=== PATIENT | male | born 1945 | race Caucasian/White ===

== ENCOUNTER → 2016-09-17 | Outpatient (CLI) | payer MEDICARE, OTHER ==
[2016-09-17 13:57] LABS: ALBUMIN 3.7 GM/DL (3.2-5.2); ALBUMIN/GLOBULIN RATIO 1.28 (1.00-1.93); BILIRUBIN,TOTAL 0.4 MG/DL (0.2-1.0); CALCIUM LEVEL 9.6 MG/DL (8.8-10.2); CREATININE FOR GFR 2.77 MG/DL (0.70-1.30); GLOMERULAR FILTRATION RATE 24.1 (>42); POTASSIUM SERUM 5.1 MEQ/L (3.5-5.1); TOTAL PROTEIN 6.6 GM/DL (6.4-8.2)
== END ==
LOC: M WUC 09:01
PROVIDERS: ATTEND Internal Medicine
DX: E03.9 Hypothyroidism, unspecified (principal); E78.00 Pure hypercholesterolemia, unspecified

== ENCOUNTER → 2016-09-25 | Outpatient (CLI) | payer MEDICARE, OTHER ==
--- NOTE | 2016-09-25 11:19 | REP ---
ULTRASOUND ABDOMEN: Real-time sonographic evaluation of the abdomen performed. There appear to be multiple small polyps along the inner wall of the gallbladder measuring up to 4 mm in diameter. Multiple small gallstones are also see in the lumen of the gallbladder. There is mild gallbladder wall thickening up to 4 mm. No free fluid is seen. There is no intrahepatic or extrahepatic biliary dilatation, common bile duct measuring 5 mm in diameter. The liver demonstrates no gross mass. The pancreas demonstrates no gross mass, evaluation of the pancreas is limited due to overlying bowel gas. The spleen is normal in size with no gross intrinsic abnormality. The length is 10.1 cm. Right kidney measures 10.9 x 6.1 x 5.9 cm and the left kidney 11.9 x 5.4 x 5.6 cm, with relatively normal size and echotexture. A cyst in the upper pole of the right kidney measures 1.0 x 0.5 x 0.7 cm. There is mild cortical thinning bilaterally. There is no hydronephrosis. Abdominal aorta is normal in caliber with no aneurysm, proximal aspect 2.4 cm in AP dimension, mid aspect 2.2 cm and distally 1.8 cm. Small complex right pleural fluid is suspected. IMPRESSION: Multiple small polyps in the gallbladder as well as multiple mobile gallstones. There is mild diffuse gallbladder wall thickening. There is no free fluid or biliary dilatation. No hydronephrosis. Right renal cyst. Small amount of complex right pleural fluid is suspected. Signed by Markos Wise MD 09/25/2016 12:58 P
== END ==
LOC: M RAD 09:09
PROVIDERS: ATTEND Internal Medicine
DX: K82.4 Cholesterolosis of gallbladder (principal); N28.1 Cyst of kidney, acquired

== ENCOUNTER → 2016-10-24 | Outpatient (CLI) | payer MEDICARE, OTHER ==
--- NOTE | 2016-10-24 12:43 | REP ---
REASON: Lower abdominal pain. PRIORS: None. The lack of intravenous contrast decreases the sensitivity of the exam. The lung bases show chronic changes, essentially unchanged from chest CT of 02/21/2015. Limited evaluation of the solid intra-abdominal organs shows no gross abnormalities. There is cholelithiasis. Limited evaluation of the adrenal glands and kidneys shows increased renal sinus adipose deposition and evidence of bilateral renal peripelvic cysts. There is no nephroureteral lithiasis, hydronephrosis, or hydroureter. There are no urinary bladder calcifications. There is mild prostatomegaly with corpora amylacea. No free fluid or free air is seen in the abdomen or pelvis. The abdominal aorta and para-aortic regions are within normal limits for the patient's age showing calcific atherosclerotic change. There is colonic diverticulosis. Seen involving the distal descending colon/upper sigmoid colon and amidst multiple diverticula, there is subtle fatty infiltration. Extensive sigmoid colon diverticulosis is noted. There is no evidence of a pelvic mass or intra-abdominal mass. There is no evidence of adenopathy. Bone window technique throughout the exam shows the osseous structures to be within normal limits for the patient's age. IMPRESSION: Early descending colon diverticulitis cannot be ruled out. Correlate clinically with appropriate followup. There is cholelithiasis. Other findings as described above. Signed by Spencer Stewart DO 10/24/2016 02:46 P
== END ==
LOC: M RAD 07:18
PROVIDERS: ATTEND Internal Medicine Nephrology
DX: K80.70 Calculus of gallbladder and bile duct without cholecystitis without obstruction (principal)

== ENCOUNTER → 2016-11-03 | Outpatient (CLI) | payer MEDICARE, OTHER ==
--- NOTE | 2016-11-03 09:35 | REP ---
Clinical: Chronic obstructive pulmonary disease . Comparison: 02/21/2015 . Technique: PA and lateral. Findings: The mediastinum and cardiac silhouette are stable. Evidence for prior sternotomy and aortic valve repair along with mild cardiomegaly. The lung march are clear and without acute consolidation, effusion, or pneumothorax. The skeletal structures are intact and normal. Impression: 1. No acute cardiopulmonary process. Signed by Allan Simpson MD 11/03/2016 09:26 A
== END ==
LOC: M RAD 09:05
PROVIDERS: ATTEND Nurse Practitioner Adult Health
DX: J44.9 Chronic obstructive pulmonary disease, unspecified (principal)

== ENCOUNTER → 2017-02-24 | Outpatient (CLI) | payer MEDICARE, OTHER ==
[2017-02-24 13:06] LABS: ALBUMIN 3.9 GM/DL (3.2-5.2); ALBUMIN/GLOBULIN RATIO 1.5 (1.00-1.93); BILIRUBIN,TOTAL 0.6 MG/DL (0.2-1.0); CALCIUM LEVEL 9.6 MG/DL (8.8-10.2); CREATININE FOR GFR 3.02 MG/DL (0.70-1.30); GLOMERULAR FILTRATION RATE 21.8 (>42); TOTAL PROTEIN 6.5 GM/DL (6.4-8.2)
[2017-02-24 13:09] LABS: POTASSIUM SERUM 5.5 MEQ/L (3.5-5.1)
== END ==
LOC: M WUC 08:43
PROVIDERS: ATTEND Internal Medicine
DX: E03.9 Hypothyroidism, unspecified (principal); N18.3 Chronic kidney disease, stage 3 (moderate); E78.00 Pure hypercholesterolemia, unspecified

== ENCOUNTER → 2018-04-01 | Outpatient (CLI) | payer MEDICARE, OTHER ==
[2018-04-01 13:45] LABS: ALBUMIN 3.8 GM/DL (3.2-5.2); ALBUMIN/GLOBULIN RATIO 1.52 (1.00-1.93); ALKALINE PHOSPHATASE 90 U/L (45-117); ALT/SGPT 19 U/L (12-78); ANION GAP 6 MEQ/L (8-16); AST/SGOT 14 U/L (7-37); BILIRUBIN,TOTAL 0.6 MG/DL (0.2-1.0); BLOOD UREA NITROGEN 42 MG/DL (7-18); CALCIUM LEVEL 9.6 MG/DL (8.8-10.2); CARBON DIOXIDE LEVEL 30 MEQ/L (21-32); CHLORIDE LEVEL 107 MEQ/L (98-107); CREATININE FOR GFR 2.57 MG/DL (0.70-1.30); GLOMERULAR FILTRATION RATE 26.2 (>42); GLUCOSE, FASTING 94 MG/DL (70-100); SODIUM LEVEL 143 MEQ/L (136-145); TOTAL PROTEIN 6.3 GM/DL (6.4-8.2)
== END ==
LOC: M WUC 08:36
DX: N18.3 Chronic kidney disease, stage 3 (moderate) (principal)
CPT/HCPCS: 80053

== ENCOUNTER → 2018-10-05 | Outpatient (REF) | payer MEDICARE, OTHER ==
[2018-10-05 19:13] LABS: HEMATOCRIT 40.2 % (42.0-52.0); HEMOGLOBIN 13.4 g/dl (13.5-17.5); MEAN CORPUSCULAR HEMOGLOBIN 30.7 pg (27.0-33.0); MEAN CORPUSCULAR HGB CONC 33.3 g/dl (32.0-36.5); MEAN CORPUSCULAR VOLUME 92.2 fl (80.0-96.0); PLATELET COUNT, AUTOMATED 174 10^3/uL (150-450); RED BLOOD COUNT 4.36 10^6/uL (4.30-6.10); WHITE BLOOD COUNT 7.6 10^3/uL (4.0-10.0)
[2018-10-05 20:20] LABS: ALBUMIN 3.7 GM/DL (3.2-5.2); BILIRUBIN,TOTAL 0.5 MG/DL (0.2-1.0); C REACTIVE PROTEIN QUANTITATIV 0.95 MG/DL (0.00-0.30); CALCIUM LEVEL 9.4 MG/DL (8.8-10.2); CHOLESTEROL RISK RATIO 3.137 (<5); CREATININE FOR GFR 2.46 MG/DL (0.70-1.30); GLOMERULAR FILTRATION RATE 27.5 (>42); POTASSIUM SERUM 4.3 MEQ/L (3.5-5.1); PTH INTACT 90.3 PG/ML (18.5-88.0); THYROID STIMULATING HORMONE 3.36 uIU/ML (0.358-3.740); TOTAL PROTEIN 6.9 GM/DL (6.4-8.2)
[2018-10-05 20:58] LABS: ERYTHROCYTE SEDIMENTATION RATE 14 mm/hr (0-20)
== END ==
LOC: M SFHCPLAZ 15:16
PROVIDERS: ATTEND Internal Medicine
DX: N18.3 Chronic kidney disease, stage 3 (moderate) (principal); E78.00 Pure hypercholesterolemia, unspecified; E03.9 Hypothyroidism, unspecified; H54.62 Unqualified visual loss, left eye, normal vision right eye
CPT/HCPCS: 36415; 69209; 80053; 80061; 83970; 84443; 85027; 85652; 86140; G0463

== ENCOUNTER → 2018-12-06 | Outpatient (CLI) | payer MEDICARE, OTHER ==
--- NOTE | 2018-12-06 14:05 | REP ---
CT of the chest without IV contrast for evaluation of aortic aneurysm: In the absence of IV contrast the study is insensitive for aortic dissection. Comparison is 10/24/2016. The diameter of the ascending thoracic aorta at the level of the pulmonary bifurcation is 3.8 cm. The diameter of the ascending aorta at the proximal isthmus is 4.0 cm. The diameter of the mid isthmus is 2.9 cm. The diameter of the distal isthmus is 3.7 cm . The diameter of the proximal descending thoracic aorta is 2.9 cm. This tapers to 2.3 cm at the diaphragmatic hiatus. The proximal isthmus is mildly dilated by size criteria. No periaortic hematoma is identified. Cardiac size is upper normal. There is no pericardial effusion. There are no infiltrates or pleural effusions. There are no nodules or masses. There is no mediastinal or axillary lymph node enlargement. The study is insensitive for hilar lymph node enlargement in the absence of IV contrast. There are sternotomy wires. Within the visualized upper abdomen. Tiny gallbladder calculi. There is no adrenal mass. Impression: The aortic diameter measurements as described. Prosthetic aortic valve. Sternotomy wires. Cardiac size is upper normal. Cholelithiasis. Electronically Signed by Markos Hamilton MD 12/06/2018 01:57 P
== END ==
LOC: M RAD 13:27
PROVIDERS: ATTEND Internal Medicine Cardiovascular Disease
DX: I71.2 Thoracic aortic aneurysm, without rupture (principal); K80.19 Calculus of gallbladder with other cholecystitis with obstruction; Z95.2 Presence of prosthetic heart valve

== ENCOUNTER → 2019-04-01 | Outpatient (CLI) | payer MEDICARE, OTHER ==
[2019-04-01 14:28] LABS: ALBUMIN 3.7 GM/DL (3.2-5.2); BILIRUBIN,TOTAL 0.5 MG/DL (0.2-1.0); CALCIUM LEVEL 9.5 MG/DL (8.8-10.2); CHOLESTEROL RISK RATIO 2.85 (<5); CREATININE FOR GFR 2.23 MG/DL (0.70-1.30); GLOMERULAR FILTRATION RATE 30.8 (>42); POTASSIUM SERUM 4.9 MEQ/L (3.5-5.1); TOTAL PROTEIN 6.4 GM/DL (6.4-8.2)
== END ==
LOC: M WUC 09:31
PROVIDERS: ATTEND Internal Medicine
DX: E78.00 Pure hypercholesterolemia, unspecified (principal)

== ENCOUNTER → 2019-09-29 | Outpatient (CLI) | payer MEDICARE, OTHER ==
[2019-09-29 10:51] LABS: ALBUMIN 3.7 GM/DL (3.2-5.2); BILIRUBIN,TOTAL 0.5 MG/DL (0.2-1.0); CHOLESTEROL RISK RATIO 2.968 (<5); CREATININE FOR GFR 2.12 MG/DL (0.70-1.30); GLOMERULAR FILTRATION RATE 32.6 (>42); POTASSIUM SERUM 4.2 MEQ/L (3.5-5.1); THYROID STIMULATING HORMONE 6.26 uIU/ML (0.358-3.740)
[2019-09-30 09:15] LABS: HEPATITIS C VIRUS ABY INDEX 0.1 INDEX (<0.8)
== END ==
LOC: M WUC 08:26
PROVIDERS: ATTEND Internal Medicine
DX: N18.3 Chronic kidney disease, stage 3 (moderate) (principal); E03.9 Hypothyroidism, unspecified; E78.00 Pure hypercholesterolemia, unspecified

== ENCOUNTER → 2020-02-10 | Outpatient (CLI) | payer MEDICARE, OTHER ==
[2020-02-10 13:20] LABS: CHOLESTEROL RISK RATIO 2.827 (<5)
== END ==
LOC: M WUC 08:08
PROVIDERS: ATTEND Internal Medicine Cardiovascular Disease
DX: I25.10 Atherosclerotic heart disease of native coronary artery without angina pectoris (principal); E78.2 Mixed hyperlipidemia

== ENCOUNTER → 2020-04-02 | Outpatient (CLI) | payer MEDICARE, OTHER ==
[2020-04-02 11:22] LABS: ALBUMIN 3.6 GM/DL (3.2-5.2); BILIRUBIN,TOTAL 0.5 MG/DL (0.2-1.0); CREATININE FOR GFR 2.36 MG/DL (0.70-1.30); GLOMERULAR FILTRATION RATE 28.8 (>42); POTASSIUM SERUM 4.2 MEQ/L (3.5-5.1); THYROID STIMULATING HORMONE 9.06 uIU/ML (0.358-3.740); TOTAL PROTEIN 6.6 GM/DL (6.4-8.2)
== END ==
LOC: M WUC 08:10
PROVIDERS: ATTEND Internal Medicine
DX: N18.30 Chronic kidney disease, stage 3 unspecified (principal); E03.9 Hypothyroidism, unspecified; E78.00 Pure hypercholesterolemia, unspecified

== ENCOUNTER → 2020-05-16 | Outpatient (CLI) | payer MEDICARE, OTHER ==
[2020-05-16 11:29] LABS: CHOLESTEROL RISK RATIO 2.602 (<5)
== END ==
LOC: M WUC 08:19
PROVIDERS: ATTEND Internal Medicine Cardiovascular Disease
DX: I25.10 Atherosclerotic heart disease of native coronary artery without angina pectoris (principal); I71.2 Thoracic aortic aneurysm, without rupture

== ENCOUNTER → 2020-05-22 | Outpatient (CLI) | payer MEDICARE, OTHER ==
--- NOTE | 2020-05-22 17:07 | REP ---
INDICATION: THORACIC AORTIC ANEURYSM W/OUT RUPTURE. COMPARISON: Chest CT without contrast dated 12/06/2018. TECHNIQUE: Chest CT without IV contrast. FINDINGS: The thoracic aortic measurements are as follows: Ascending aorta at pulmonary artery bifurcation level: 3.8 cm, unchanged. Ascending aorta at the proximal isthmus: 4.0 cm, unchanged. Mid isthmus: 2.8 cm, unchanged. Distal isthmus: 3.7 cm, unchanged. Proximal descending thoracic aorta 2.9 cm, unchanged. This tapers to 2.3 cm at the diaphragmatic hiatus, unchanged. There is no periaortic hematoma. Cardiac size is upper normal. There is no pericardial effusion. There are no lung masses, nodules, infiltrates or pleural effusions. There is no mediastinal or axillary lymph node enlargement. In the absence of IV contrast the study is insensitive for hilar lymph node enlargement. Sternotomy wires are unchanged. Upper abdomen: Cholelithiasis, unchanged. The visualized areas of the unenhanced liver, pancreas, spleen, adrenals are unremarkable. I suspect diffuse renal cortical atrophy in the visualized renal upper poles. IMPRESSION: The thoracic aortic measurements are unchanged. No significant interval change otherwise. More the kidneys are visualized today than previously. I suspect there is bilateral renal cortical atrophy in the visualized regions of the kidneys. <Electronically signed by Markos Hamilton > 05/22/20 [id number]
== END ==
LOC: M RAD 13:02
PROVIDERS: ATTEND Internal Medicine Cardiovascular Disease
DX: I71.2 Thoracic aortic aneurysm, without rupture (principal)

== ENCOUNTER → 2020-10-29 | Outpatient (REF) | payer MEDICARE, OTHER ==
[2020-10-29 11:02] LABS: ALBUMIN 3.5 GM/DL (3.2-5.2); BILIRUBIN,TOTAL 0.6 MG/DL (0.2-1.0); CALCIUM LEVEL 9.7 MG/DL (8.8-10.2); CHOLESTEROL RISK RATIO 2.015 (<5); CREATININE FOR GFR 2.22 MG/DL (0.70-1.30); GLOMERULAR FILTRATION RATE 30.8 (>42); POTASSIUM SERUM 4.1 MEQ/L (3.5-5.1)
== END ==
LOC: M WUC 09:59
PROVIDERS: ATTEND Internal Medicine
DX: E03.9 Hypothyroidism, unspecified (principal); E78.00 Pure hypercholesterolemia, unspecified

== ENCOUNTER → 2020-12-05 | Outpatient (CLI) | payer MEDICARE, OTHER ==
--- NOTE | 2020-12-06 15:57 | SLEEPCENT ---
NOCTURNAL POLYSOMNOGRAPHY CPAP RE-TITRATION DATE: 12/05/2020 ORDERED BY: Rani Ibarra NP Nocturnal polysomnography was performed for the re-titration of pressure therapy in this patient with obstructive sleep apnea syndrome. For testing a [employer] Airfit F20 full face mask of medium size was used, 13 cm of water pressure were applied to the circuit, and the lights were extinguished. Seven hours and 35 minutes of data were reviewed. There were 378.5 minutes of sleep identified. Sleep latency was normal at 27.5 minutes. REM sleep was mildly delayed at 146 minutes. Sleep architecture was good and improved on optimal pressure therapy. There were three REM cycles appreciated. Overall sleep efficiency was 84.1%. The EKG shows a sinus mechanism with intermittent AV block and PVCs. Average heart rate 60 beats per minute. EEG showed normal waveforms for wake and sleep. Respiratory events were best palliated with CPAP at a pressure of +15. There was significant limb activity throughout the study. However, limb movement arousal index was only 1.6. IMPRESSIONS: 1. Obstructive sleep apnea syndrome. 2. Cardiac arrhythmia. RECOMMENDATION: Nightly use of pressure therapy 15 cm of water should be sufficient to address the patient's obstructive respiratory events. Further evaluation of the abnormal cardiac rhythm may be prudent. cc: SHARON WALSH MD
== END ==
LOC: M SLEEP 20:00
PROVIDERS: ATTEND Nurse Practitioner Adult Health
DX: G47.33 Obstructive sleep apnea (adult) (pediatric) (principal)

== ENCOUNTER → 2021-09-30 | Outpatient (CLI) | payer MEDICARE, OTHER | LOC: M WUC 12:56 | PROVIDERS: ATTEND Physician Assistant | DX: S80.11XA Contusion of right lower leg, initial encounter (principal); S90.31XA Contusion of right foot, initial encounter; S90.01XA Contusion of right ankle, initial encounter; W18.30XA Fall on same level, unspecified, initial encounter; Y92.009 Unspecified place in unspecified non-institutional (private) residence as the place of occurrence of the external cause ==

== ENCOUNTER → 2021-10-09 | Outpatient (CLI) | payer MEDICARE, OTHER ==
[2021-10-09 10:03] LABS: BASO % 0.2 % (0.0-1.0); EOS # 0.3 10^3/uL (0.0-0.5); EOS % 3.9 % (0.0-3.0); HEMATOCRIT 33.5 % (42.0-52.0); HEMOGLOBIN 11.1 g/dl (13.5-17.5); LYMPH # 1.7 10^3/uL (1.5-5.0); LYMPH % 20.8 % (24.0-44.0); MEAN CORPUSCULAR HEMOGLOBIN 30.4 pg (27.0-33.0); MEAN CORPUSCULAR HGB CONC 33.1 g/dl (32.0-36.5); MEAN CORPUSCULAR VOLUME 91.8 fl (80.0-96.0); MONO # 0.8 10^3/uL (0.0-0.8); MONO % 9.8 % (2.0-8.0); NEUTROPHILS # 5.3 10^3/uL (1.5-8.5); NEUTROPHILS % 64.8 % (36.0-66.0); PLATELET COUNT, AUTOMATED 210 10^3/uL (150-450); RED BLOOD COUNT 3.65 10^6/uL (4.30-6.10); WHITE BLOOD COUNT 8.2 10^3/uL (4.0-10.0)
[2021-10-09 10:33] LABS: ALBUMIN 3.4 GM/DL (3.2-5.2); BILIRUBIN,TOTAL 0.4 MG/DL (0.2-1.0); CALCIUM LEVEL 10.4 MG/DL (8.8-10.2); CHOLESTEROL RISK RATIO 2.824 (<5); CREATININE FOR GFR 2.21 MG/DL (0.70-1.30); GLOMERULAR FILTRATION RATE 30.9 (>42); MAGNESIUM LEVEL 2.4 MG/DL (1.8-2.4); POTASSIUM SERUM 4.2 MEQ/L (3.5-5.1); THYROID STIMULATING HORMONE 0.733 uIU/ML (0.358-3.740); TOTAL PROTEIN 6.2 GM/DL (6.4-8.2)
[2021-10-09 11:48] LABS: PTH INTACT 110.2 PG/ML (18.5-88.0)
== END ==
LOC: M WUC 08:33
PROVIDERS: ATTEND Internal Medicine
DX: N18.32 Chronic kidney disease, stage 3b (principal); E03.9 Hypothyroidism, unspecified; E78.00 Pure hypercholesterolemia, unspecified; G47.30 Sleep apnea, unspecified

== ENCOUNTER → 2022-04-03 | Outpatient (CLI) | payer MEDICARE, OTHER ==
[2022-04-03 12:40] LABS: HEMATOCRIT 38.1 % (42.0-52.0); HEMOGLOBIN 12.3 g/dl (13.5-17.5); LYMPH % 18.1 % (24.0-44.0); MEAN CORPUSCULAR HEMOGLOBIN 30.2 pg (27.0-33.0); MEAN CORPUSCULAR HGB CONC 32.3 g/dl (32.0-36.5); MEAN CORPUSCULAR VOLUME 93.6 fl (80.0-96.0); PLATELET COUNT, AUTOMATED 167 10^3/uL (150-450); RED BLOOD COUNT 4.07 10^6/uL (4.30-6.10); WHITE BLOOD COUNT 9.4 10^3/uL (4.0-10.0)
[2022-04-03 12:41] LABS: BASO % 0.2 % (0.0-1.0); EOS # 0.2 10^3/uL (0.0-0.5); EOS % 2.6 % (0.0-3.0); LYMPH # 1.7 10^3/uL (1.5-5.0); MONO # 0.8 10^3/uL (0.0-0.8); MONO % 8.8 % (2.0-8.0); NEUTROPHILS # 6.6 10^3/uL (1.5-8.5)
[2022-04-03 13:29] LABS: ALBUMIN 3.7 GM/DL (3.2-5.2); BILIRUBIN,TOTAL 0.6 MG/DL (0.2-1.0); CALCIUM LEVEL 9.7 MG/DL (8.8-10.2); CHOLESTEROL RISK RATIO 2.358 (<5); CREATININE FOR GFR 2.71 MG/DL (0.70-1.30); GLOMERULAR FILTRATION RATE 24.4 (>42); MAGNESIUM LEVEL 2.4 MG/DL (1.8-2.4); POTASSIUM SERUM 4.1 MEQ/L (3.5-5.1); THYROID STIMULATING HORMONE 0.827 uIU/ML (0.358-3.740); TOTAL PROTEIN 6.3 GM/DL (6.4-8.2)
[2022-04-03 14:27] LABS: PTH INTACT 142.4 PG/ML (18.5-88.0)
== END ==
LOC: M WUC 09:51
PROVIDERS: ATTEND Internal Medicine Hematology
DX: N18.32 Chronic kidney disease, stage 3b (principal); E78.00 Pure hypercholesterolemia, unspecified; G47.30 Sleep apnea, unspecified